=== PATIENT | female | born 1970 | race Caucasian/White ===

== ENCOUNTER 2024-06-01 13:14 | Inpatient (IN) ==
[2024-06-01] MEDS: PIPERACILLIN SODIUM/TAZOBACTAM 3.375 GM in DEXTROSE 5% IN WATER 50 ML IV ONE (14:16)
[2024-06-01] MEDS: VANCOMYCIN PER PHARMACY IV ONE (14:25)
[2024-06-01 14:28] LABS: Basophils # (Auto) 0.03 K/mcL (0.00-0.30); Basophils % (Auto) 0.2 % (0.0-2.0); Eosinophils # (Auto) 0.14 K/mcL (0.00-0.70); Eosinophils % (Auto) 1.1 % (0.0-7.0); Hematocrit 43.5 % (34.1-44.9); Hemoglobin 15.1 g/dL (11.2-15.7); Lymphocytes # (Auto) 3.34 K/mcL (1.50-4.80); Lymphocytes % (Auto) 26.2 % (15.5-49.0); Mean Cell Volume 84.5 fL (80.0-100.0); Mean Corpuscular HGB Conc 34.7 g/dL (31.0-36.0); Mean Platelet Volume 9.4 fL (8.8-12.5); Monocytes # (Auto) 0.79 K/mcL (0.10-0.90); Monocytes % (Auto) 6.2 % (1.0-12.0); Platelet Count 273 K/mcL (140-440); RBC 5.15 M/mcL (3.59-5.38); Red Cell Distribution Width 10.9 % (11.5-14.5); WBC 12.7 K/mcL (4.5-11.0)
[2024-06-01 14:31] LABS: Erythrocyte Sedimentation Rate 57 mm/hr (0-30)
[2024-06-01] MEDS: VANCOMYCIN 1,500 MG in 0.9 % SODIUM CHLORIDE 500 ML IV SCH (14:47)
[2024-06-01 14:55] LABS: Blood Urea Nitrogen 23 mg/dL (6-20); Calcium 9.4 mg/dL (8.6-10.4); Carbon Dioxide 25 mmol/L (22-30); Chloride 96 mmol/L (96-108); Glomerular Filtration Rate 109; Glucose 332 mg/dL (70-105); Potassium 4.1 mmol/L (3.3-5.1); Sodium 133 mmol/L (133-145)
[2024-06-01] MEDS ORDERED: VANCOMYCIN PER PHARMACY IV SCH (16:40)
[2024-06-01] MEDS: PIPERACILLIN SODIUM/TAZOBACTAM 4.5 GM in DEXTROSE 5% IN WATER 100 ML IV SCH (18:35)
[2024-06-01] MEDS: PIPERACILLIN SODIUM/TAZOBACTAM 4.5 GM VIAL IV ONE (18:35)
[2024-06-01] MEDS: PIPERACILLIN SODIUM/TAZOBACTAM 3.375 GM in DEXTROSE 5% IN WATER 100 ML IV SCH (18:37)
[2024-06-01] MEDS ORDERED: POLYETHYLENE GLYCOL 3350 17 GM PACKET PO PRN (19:32)
[2024-06-01] MEDS ORDERED: ONDANSETRON 4 MG/2 ML VIAL IV PRN (19:32)
[2024-06-01] MEDS ORDERED: DEXTROSE 50% 50 ML VIAL IV PRN (19:35)
[2024-06-01] MEDS ORDERED: DEXTROSE 31 GM ORAL.SUSP PO PRN (19:35)
[2024-06-01] MEDS ORDERED: NICOTINE POLACRILEX 2 MG GUM CHEW/PARK PRN (19:47)
[2024-06-01 20:14] LABS: C-Reactive Protein 9.91 mg/dL (0.03-0.80)
[2024-06-01] MEDS: INSULIN LISPRO 1 UNIT/0.01 ML UNIT SQ SCH (20:26)
[2024-06-01] MEDS: LACTATED RINGERS 1,000 ML IV SCH (20:40)
[2024-06-01] MEDS: DOCUSATE SODIUM 100 MG CAPSULE PO SCH (20:46)
[2024-06-01] MEDS: SENNOSIDES 1 TABLET PO SCH (20:46)
[2024-06-01] MEDS: NICOTINE 14 MG PATCH TOPICAL SCH (20:54)
[2024-06-01] MEDS: HEPARIN 5,000 UNIT/ML VIAL SQ SCH (20:54)
[2024-06-01] MEDS: 0.9 % SODIUM CHLORIDE 10 ML SYRINGE IV SCH (22:32)
[2024-06-01] MEDS: VANCOMYCIN 2,000 MG in 0.9 % SODIUM CHLORIDE 500 ML IV ONE (23:14)
[2024-06-02] MEDS: morphine 4 MG/ML VIAL IV PRN (04:09)
[2024-06-02 06:54] LABS: Basophils # (Auto) 0.03 K/mcL (0.00-0.30); Basophils % (Auto) 0.3 % (0.0-2.0); Eosinophils # (Auto) 0.24 K/mcL (0.00-0.70); Eosinophils % (Auto) 2.1 % (0.0-7.0); Hematocrit 41.7 % (34.1-44.9); Hemoglobin 14.1 g/dL (11.2-15.7); Lymphocytes # (Auto) 3.02 K/mcL (1.50-4.80); Lymphocytes % (Auto) 25.8 % (15.5-49.0); Mean Cell Volume 85.5 fL (80.0-100.0); Mean Corpuscular HGB Conc 33.8 g/dL (31.0-36.0); Mean Platelet Volume 9.2 fL (8.8-12.5); Monocytes % (Auto) 6.8 % (1.0-12.0); Neutrophils % (Auto) 64.7 % (38.0-78.0); Platelet Count 276 K/mcL (140-440); RBC 4.88 M/mcL (3.59-5.38); WBC 11.7 K/mcL (4.5-11.0)
[2024-06-02 07:29] LABS: ALT/SGPT 9 U/L (<40); AST/SGOT 11 U/L (<32); Albumin 3.2 gm/dL (3.2-5.2); Albumin/Globulin Ratio 0.9 (1.0-2.3); Alkaline Phosphatase 85 U/L (39-117); Bilirubin,Direct < 0.2 mg/dL (0-0.3); Bilirubin,Total 0.3 mg/dL (0.1-1.0); Blood Urea Nitrogen 20 mg/dL (6-20); Calcium 8.8 mg/dL (8.6-10.4); Carbon Dioxide 24 mmol/L (22-30); Chloride 99 mmol/L (96-108); Globulin 3.4 gm/dL (2.2-3.7); Glomerular Filtration Rate 109; Glucose 217 mg/dL (70-105); Lactate Dehydrogenase 135 U/L (135-225); Phosphorous 3.2 mg/dL (2.5-4.5); Potassium 4.1 mmol/L (3.3-5.1); Sodium 135 mmol/L (133-145); Triglycerides 145 mg/dL (<150); Uric Acid 2.1 mg/dL (2.5-8.0)
[2024-06-02] MEDS: INSULIN GLARGINE, HUMAN 1 UNIT/0.01 ML SQ ONE (07:49)
[2024-06-02] MEDS: VANCOMYCIN 1,750 MG in 0.9 % SODIUM CHLORIDE 500 ML IV SCH (09:14)
[2024-06-02] MEDS ORDERED: LIDOCAINE 2% PF 5 ML VIAL ONE (15:56)
[2024-06-02] MEDS ORDERED: PROPOFOL 200 MG/20 ML VIAL IV ONE (15:56)
[2024-06-02] MEDS ORDERED: ONDANSETRON 4 MG/2 ML VIAL ONE (15:56)
[2024-06-02] MEDS ORDERED: KETAMINE 50 MG/ML Syringe IV ONE (15:56)
[2024-06-02] MEDS ORDERED: DEXAMETHASONE 10 MG/ML VIAL ONE (15:56)
[2024-06-02] MEDS ORDERED: PHENYLephrine 1 MG/10 ML SYRINGE (ANEST) ONE (16:37)
[2024-06-02] MEDS ORDERED: IPRATROPIUM/ALBUTEROL 3 ML AMPUL.NEB NEB PRN (16:55)
[2024-06-02] MEDS ORDERED: fentaNYL 100 MCG/2 ML VIAL IV PRN (16:55)
[2024-06-02] MEDS ORDERED: diphenhydrAMINE 50 MG/ML VIAL IV PRN (16:55)
[2024-06-02] MEDS ORDERED: NALOXONE HCL 0.4 MG/ML VIAL IV PRN (16:55)
[2024-06-02] MEDS ORDERED: LACTATED RINGERS 250 ML IV PRN (16:55)
[2024-06-02] MEDS ORDERED: ONDANSETRON 4 MG/2 ML VIAL IV PRN (16:55)
[2024-06-02] MEDS ORDERED: MEPERIDINE 25 MG/ML VIAL IV PRN (16:55)
[2024-06-02] MEDS: ACETAMINOPHEN 1,000 MG/100 ML BAG IV ONE (17:12)
[2024-06-02] MEDS: LACTATED RINGERS 1,000 ML IV SCH (17:45)
[2024-06-02] MEDS: ACETAMINOPHEN 325 MG TABLET PO PRN (21:15)
[2024-06-02] MEDS: 0.9 % SODIUM CHLORIDE 10 ML SYRINGE IV SCH (22:10)
[2024-06-03] MEDS: oxyCODONE IR 5 MG TABLET PO PRN (06:39)
[2024-06-03 08:31] LABS: Basophils # (Auto) 0.02 K/mcL (0.00-0.30); Basophils % (Auto) 0.1 % (0.0-2.0); Eosinophils # (Auto) 0.01 K/mcL (0.00-0.70); Eosinophils % (Auto) 0.1 % (0.0-7.0); Hematocrit 45.3 % (34.1-44.9); Hemoglobin 15.1 g/dL (11.2-15.7); Lymphocytes # (Auto) 1.42 K/mcL (1.50-4.80); Lymphocytes % (Auto) 10.1 % (15.5-49.0); Mean Cell Volume 85.3 fL (80.0-100.0); Mean Corpuscular HGB Conc 33.3 g/dL (31.0-36.0); Mean Platelet Volume 8.9 fL (8.8-12.5); Monocytes # (Auto) 0.53 K/mcL (0.10-0.90); Monocytes % (Auto) 3.8 % (1.0-12.0); Neutrophils % (Auto) 85.4 % (38.0-78.0); Platelet Count 307 K/mcL (140-440); RBC 5.31 M/mcL (3.59-5.38); Red Cell Distribution Width 10.9 % (11.5-14.5); WBC 14.1 K/mcL (4.5-11.0)
[2024-06-03 08:42] LABS: ALT/SGPT 10 U/L (<40); AST/SGOT 11 U/L (<32); Albumin 3.6 gm/dL (3.2-5.2); Alkaline Phosphatase 92 U/L (39-117); Bilirubin,Direct < 0.2 mg/dL (0-0.3); Bilirubin,Total 0.2 mg/dL (0.1-1.0); Blood Urea Nitrogen 17 mg/dL (6-20); Calcium 9.3 mg/dL (8.6-10.4); Carbon Dioxide 27 mmol/L (22-30); Chloride 98 mmol/L (96-108); Globulin 3.7 gm/dL (2.2-3.7); Glomerular Filtration Rate 102; Glucose 242 mg/dL (70-105); Lactate Dehydrogenase 153 U/L (135-225); Phosphorous 4.2 mg/dL (2.5-4.5); Potassium 4.3 mmol/L (3.3-5.1); Sodium 137 mmol/L (133-145); Triglycerides 144 mg/dL (<150); Uric Acid 2.1 mg/dL (2.5-8.0)
[2024-06-03 08:43] LABS: C-Reactive Protein 6.77 mg/dL (0.03-0.80)
[2024-06-03] MEDS: INSULIN GLARGINE, HUMAN 1 UNIT/0.01 ML SQ ONE (13:33)
[2024-06-04 05:59] LABS: Basophils # (Auto) 0.05 K/mcL (0.00-0.30); Basophils % (Auto) 0.4 % (0.0-2.0); Eosinophils # (Auto) 0.16 K/mcL (0.00-0.70); Eosinophils % (Auto) 1.3 % (0.0-7.0); Hematocrit 43.5 % (34.1-44.9); Hemoglobin 14.3 g/dL (11.2-15.7); Lymphocytes # (Auto) 4.18 K/mcL (1.50-4.80); Lymphocytes % (Auto) 34.4 % (15.5-49.0); Mean Cell Volume 87.9 fL (80.0-100.0); Mean Corpuscular HGB Conc 32.9 g/dL (31.0-36.0); Mean Platelet Volume 9.2 fL (8.8-12.5); Monocytes # (Auto) 0.83 K/mcL (0.10-0.90); Monocytes % (Auto) 6.8 % (1.0-12.0); Neutrophils % (Auto) 56.8 % (38.0-78.0); Platelet Count 278 K/mcL (140-440); RBC 4.95 M/mcL (3.59-5.38); Red Cell Distribution Width 11.2 % (11.5-14.5); WBC 12.1 K/mcL (4.5-11.0)
[2024-06-04 06:22] LABS: ALT/SGPT 8 U/L (<40); AST/SGOT 10 U/L (<32); Albumin 3.2 gm/dL (3.2-5.2); Alkaline Phosphatase 79 U/L (39-117); Bilirubin,Direct < 0.2 mg/dL (0-0.3); Bilirubin,Total < 0.2 mg/dL (0.1-1.0); Blood Urea Nitrogen 15 mg/dL (6-20); Calcium 8.9 mg/dL (8.6-10.4); Carbon Dioxide 26 mmol/L (22-30); Chloride 103 mmol/L (96-108); Globulin 3.1 gm/dL (2.2-3.7); Glomerular Filtration Rate 109; Glucose 182 mg/dL (70-105); Lactate Dehydrogenase 139 U/L (135-225); Phosphorous 3.8 mg/dL (2.5-4.5); Sodium 140 mmol/L (133-145); Triglycerides 183 mg/dL (<150); Uric Acid 2.5 mg/dL (2.5-8.0)
[2024-06-04] MEDS: INSULIN GLARGINE, HUMAN 1 UNIT/0.01 ML SQ SCH (08:39)
[2024-06-04] MEDS: PENICILLIN VK 250 MG TABLET PO SCH (10:47)
[2024-06-04] MEDS: LEVOFLOXACIN 750 MG TABLET PO SCH (10:51)
== END 2024-06-04 11:50 | disposition home or self-care (01) | DRG 617 ==
LOC: ED 13:14 → MEDSUR 20:13
PROVIDERS: ADMIT Student in an Organized Health Care Education/Training Program; ATTEND Student in an Organized Health Care Education/Training Program